=== PATIENT | male | born 1935 | race Caucasian/White ===

== ENCOUNTER 2020-07-20 07:22 | Day surgery (SDC) | payer MEDICARE, OTHER ==
[~2020-07-20 07:22] MED LIST: Lactated Ringers 1,000 ML IV SCH
[2020-07-20] MEDS ORDERED: fentaNYL 100 MCG/2 ML SDV ONE (08:21)
[2020-07-20] MEDS ORDERED: Propofol 200 MG/20 ML SDV ONE (08:21)
[2020-07-20 10:27] VITALS: BP 95/56; PULSE 78
--- NOTE | 2020-07-20 11:58 | OR ---
PREOPERATIVE DIAGNOSES: History of cecal colon cancer in 2016, status post resection. POSTOPERATIVE DIAGNOSES: 1. History of cecal colon cancer in 2016, status post resection. 2. Colon polyps. PROCEDURE PERFORMED: Total flexible colonoscopy with biopsies. ANESTHESIA: MAC anesthesia. COMPLICATIONS: None apparent. BLOOD LOSS: Minimal. FINDINGS: 1. Polyp at ileocolic anastomosis, 3 mm, cold snare. 2. Transverse colon polyp x2, 2 mm/3 mm, cold forceps and cold snare. 3. Descending colon polyps x3, 2 mm, cold forceps and cold snare, 1 polyp not retrieved. START TIME: 926. ILEOCOLIC ANASTOMOSIS: 936. STOP TIME: 1002. BOWEL PREP: [place] class 3. INDICATIONS FOR PROCEDURE: Mr. Santoyo is an 84-year-old male who has had a cecal cancer in 2016, which was resected in [place]. He is here for a surveillance colonoscopy. He denies any issues except for feeling a bit run-down after he had a diagnosis of COVID. DETAILS OF PROCEDURE: After informed consent was obtained, the patient was placed in left lateral decubitus position. MAC anesthesia was used by Anesthesia colleagues. The colonoscope was introduced into the rectum and advanced all the way to the ileocolic anastomosis. This was photographed. The colonoscope was then slowly withdrawn. No pathology identified except for as mentioned in the above finding section. Retroflexed views were obtained and was unremarkable. The colonoscope was then removed, and the patient was awoken from MAC anesthesia by Anesthesia colleagues without incident. PATHOLOGY: A) Colon, polyp near anastomosis Tubular adenoma. B) Colon, transverse, polyp Tubular adenoma. C) Colon, transverse, polyp Tubular adenoma. D) Colon, descending, polyps 2 Hyperplastic polyps. RECOMMENDATIONS: Recommend repeat colonoscopy in 3 years. RKM: 07/20/2020 10:09:44 MODL: 07/20/2020 11:05:47 /[id number] KELLIE
--- NOTE | 2020-07-30 08:01 | LETTER ---
07/27/2020 RE: OMI SEO : 1935 [address], [place] [address]. Dear Mr. Seo: I am writing to inform you of the pathology results of your recent colonoscopy. You had 3 tubular adenomas. A tubular adenoma is a polyp which does not contain cancer, but it can become cancer. This is why we removed them. You will need a repeat colonoscopy in 3 years. Warmest regards,
== END 2020-07-20 11:00 | disposition home or self-care (01) ==
LOC: VM.SDS 07:22
PROVIDERS: ATTEND Student in an Organized Health Care Education/Training Program
DX: Z12.11 Encounter for screening for malignant neoplasm of colon (principal); D12.3 Benign neoplasm of transverse colon; J44.9 Chronic obstructive pulmonary disease, unspecified; I10 Essential (primary) hypertension; I48.91 Unspecified atrial fibrillation; J45.909 Unspecified asthma, uncomplicated; Z85.038 Personal history of other malignant neoplasm of large intestine; Z90.49 Acquired absence of other specified parts of digestive tract; Z98.890 Other specified postprocedural states; Z79.899 Other long term (current) drug therapy; Z88.0 Allergy status to penicillin
CPT/HCPCS: 00811; 88305; J2704; J3010; J7120

== ENCOUNTER 2021-05-24 11:51 | Inpatient (IN) | payer MEDICARE, OTHER ==
--- NOTE | 2021-05-24 11:35 | EDM.PDOC ---
ED HPI GENERAL MEDICAL PROBLEM - General Chief Complaint: Trauma Stated Complaint: FALL, TRAUMA Time Seen by Provider: 05/24/21 11:51 Source of Information: Reports: Patient History Limitations: Reports: No Limitations - History of Present Illness INITIAL COMMENTS - FREE TEXT/NARRATIVE: Department by ambulance with complaints of fall on blood thinners. Patient was at the standing position and fell to the side hitting the side of his head on a cabinet. He denies falling to the ground. He denies losing consciousness, nausea, dizziness, lightheadedness, vision changes, balance disturbance, chest pain, or shortness of breath. Patient states that he lost his balance when he caught his footing his head had already hit the cabinet. Patient was going to be seen in the clinic today for upper respiratory concerns. That he states to been going on for the last 10 days. Onset: Sudden Duration: Other Location: Reports: Generalized Quality: Reports: Other Severity: Moderate Improves with: Reports: None Worsens with: Reports: None Context: Reports: Trauma Associated Symptoms: Reports: No Other Symptoms - Related Data Allergies Allergy/AdvReac Type Severity Reaction Status Date / Time Penicillins Allergy Hives Verified 07/20/20 08:07 Home Meds: Home Meds Albuterol [Proventil Neb Soln] 1 unit NEB QID PRN 03/19/15 [History] Ferrous Sulfate 325 mg PO DAILY 03/19/15 [History] Flunisolide [Nasalide Nasal [place]] 2 spray TARIQ BID 03/19/15 [History] Fluticasone/Salmeterol [Advair Diskus 500-50] 1 puff INH BID 03/19/15 [History] Gabapentin [Neurontin] 300 mg PO ASDIRECTED 03/19/15 [History] Montelukast [Singulair] 10 mg PO BEDTIME 03/19/15 [History] Pantoprazole [Protonix] 40 mg PO DAILY 03/19/15 [History] Tamsulosin [Tamsulosin 24 Hr] 0.4 mg PO BEDTIME 03/19/15 [History] Apixaban [Eliquis] 5 mg PO BID 03/18/16 [History] Acetaminophen [Tylenol] 325 mg PO DAILY PRN 04/21/19 [History] Albuterol Sulfate [Albuterol Sulfate Hfa] 1 puff IH Q4H PRN 04/21/19 [History] Budesonide/Formoterol [Symbicort 160-4.5 MCG] 2 puff INH BID 04/21/19 [History] Diclofenac Sodium [Voltaren 1%] 1 applic TOP BID 04/21/19 [History] Lisinopril/Hydrochlorothiazide [Lisinopril-HCTZ 10-12.5 MG] 2 tab PO DAILY 04/21/19 [History] Triamcinolone Acetonide [Kenalog 0.1% Crm] 1 dose TOP TID PRN 04/21/19 [History] Metoprolol Tartrate 100 mg PO BID 06/07/20 [History] Past Medical History HEENT History: Reports: Glaucoma, Other (See Below) Other HEENT History: Presbyesophagus; dysphagia; dyspepsia; nasal polyposis; chronic sinisitis Cardiovascular History: Reports: Afib, Hypertension Other Cardiovascular History: palpations; PVCs; NSVT Respiratory History: Reports: Asthma, COPD Gastrointestinal History: Reports: Colon Polyp, GERD, Helicobacter Pylori Other Gastrointestinal History: hx adenomatous polyps; hx h. pylori; bilateral inguinal hernia, dyspepsia, dysphagia Genitourinary History: Reports: BPH Other Genitourinary History: hypogonadism; BPH Musculoskeletal History: Reports: Arthritis, Back Pain, Chronic Other Musculoskeletal History: lumbago; rotator cuff; impingement syndrome of right shoulder; DJD Other Neuro History: hx meningioma IN BRAIN; carpal tunnel syndome; PLMD (poly limb movement disorder); lumbar radiculopathy Endocrine/Metabolic History: Reports: Other (See Below) Other Endocrine/Metabolic History: hypogonadism Hematologic History: Reports: Anemia, Iron Deficiency Oncologic (Cancer) History: Reports: Colon, Other (See Below) Other Oncologic History: meningioma - Past Surgical History Other HEENT Surgeries/Procedures: bilateral endoscopic sinus surgery with navigation; septoplasty, submucosal resection of turbinates; manometry esophageal Cardiovascular Surgical History: Reports: Cardiac Ablation Other Cardiovascular Surgeries/Procedures: cardioversion; catheterization Respiratory Surgical History: Reports: Other (See Below) Other Respiratory Surgeries/Procedures: bronchoscopy GI Surgical History: Reports: Appendectomy, Cholecystectomy, Colon, Colonoscopy, EGD, Hernia, Inguinal, Polypectomy, Other (See Below) Other GI Surgeries/Procedures: hiatal hernia repair x2, left and right inguinal; vadim fundoplication; bronchoscopy Other Neurological Surgeries/Procedures: meningioma of the speniod ridge removed; spinal stimulator Other Oncologic Surgeries/Procedures: Pt. scheduled for resection of colon 2015 ED ROS GENERAL - Review of Systems Review Of Systems: Comprehensive ROS is negative, except as noted in HPI. Constitutional: Reports: No Symptoms HEENT: Reports: No Symptoms Respiratory: Reports: Cough, Sputum Cardiovascular: Reports: No Symptoms Endocrine: Reports: No Symptoms GI/Abdominal: Reports: No Symptoms : Reports: No Symptoms Musculoskeletal: Reports: No Symptoms Skin: Reports: No Symptoms Neurological: Reports: No Symptoms Psychiatric: Reports: No Symptoms Hematologic/Lymphatic: Reports: No Symptoms Immunologic: Reports: No Symptoms ED EXAM, GENERAL - Physical Exam Exam: See Below Exam Limited By: No Limitations General Appearance: Alert, WD/WN, No Apparent Distress Nose: Normal Inspection, Normal Mucosa Head: Atraumatic, Normocephalic Neck: Normal Inspection, Supple, Full Range of Motion, Tender Lateral Respiratory/Chest: No Respiratory Distress, No Accessory Muscle Use, Chest Non- Tender, Decreased Breath Sounds Cardiovascular: Tachycardia GI/Abdominal: Normal Bowel Sounds, Soft, Non-Tender Back Exam: Normal Inspection, Full Range of Motion Extremities: Normal Inspection, Normal Range of Motion, Non-Tender, No Pedal Edema, Normal Capillary Refill Neurological: Alert, Oriented, Normal Cognition Psychiatric: Normal Affect, Normal Mood Skin Exam: Warm, Normal Color, No Rash, Other (right temporal hematoma with superficial cut. left elbow abrasion) Course - Orders/Labs/Meds Orders: Active Orders 24 hr Category Date Time Status Cervical Spine 1V [CR] Stat Exams 05/24/21 12:07 Ordered Chest 1V Frontal [CR] Stat Exams 05/24/21 11:34 Ordered COVID-19/FLU A+B [MOLEC] Stat Lab 05/24/21 12:01 Ordered CULTURE BLOOD [BC] Stat Lab 05/24/21 12:22 Ordered CULTURE BLOOD [BC] Stat Lab 05/24/21 12:22 Ordered Blood Culture x2 Reflex Set [OM.PC] Stat Oth 05/24/21 12:22 Ordered Labs: Laboratory Tests 05/24/21 05/24/21 05/24/21 Range/Units 12:10 12:10 12:10 WBC 21.0 H* (4.0-10.0) x10^3/uL RBC 4.79 (4.5-6.0) x10^6/uL Hgb 13.9 L (14.0-18.0) g/dL Hct 41.1 (40.0-52.0) % MCV 85.8 (78.0-93.0) fL MCH 29.0 (26.0-32.0) pg MCHC 33.8 (32.0-36.0) g/dL RDW Coeff of Gage 15.4 H (10.0-15.0) % Plt Count 200 (130-400) x10^3/uL Add Manual Diff Yes Neutrophils % (Manual) 88 H (50-80) % Band Neutrophils % 4 (0-6) % Lymphocytes % (Manual) 3 L (25-50) % Monocytes % (Manual) 5 (2-11) % Absolute Neutrophils 19.3 H (1.8-7.7) x10^3/uL Lymphocytes # (Manual) 0.6 L (1.0-4.8) x10^3/uL Monocytes # (Manual) 1.1 H (0.0-0.8) x10^3/uL Platelet Estimate Adequate Sodium 134 L (136-145) mmol/L Potassium 4.7 (3.5-5.1) mmol/L Chloride 98 (98-107) mmol/L Carbon Dioxide 23 (21-32) mmol/L Anion Gap 17.7 H (5-15) mmol/L BUN 29 H (7-18) mg/dL Creatinine 1.0 (0.70-1.30) mg/dL Est Cr Clr Drug Dosing TNP Estimated GFR (MDRD) > 60 Glucose 202 H (70-99) mg/dL Lactic Acid (0.4-2.0) mmol/L Calcium 9.2 (8.5-10.1) mg/dL Corrected Calcium 9.8 (8.5-10.1) mg/dL Total Bilirubin 1.4 H (0.2-1.0) mg/dL AST 44 H (15-37) U/L ALT 34 (16-63) U/L Alkaline Phosphatase 90 (46-116) U/L NT-Pro-B Natriuret Pep 5950 H (<=450) pg/mL Total Protein 7.3 (6.4-8.2) g/dL Albumin 3.2 L (3.4-5.0) g/dL Globulin 4.1 Albumin/Globulin Ratio 0.78 05/24/21 Range/Units 12:10 WBC (4.0-10.0) x10^3/uL RBC (4.5-6.0) x10^6/uL Hgb (14.0-18.0) g/dL Hct (40.0-52.0) % MCV (78.0-93.0) fL MCH (26.0-32.0) pg MCHC (32.0-36.0) g/dL RDW Coeff of Gage (10.0-15.0) % Plt Count (130-400) x10^3/uL Add Manual Diff Neutrophils % (Manual) (50-80) % Band Neutrophils % (0-6) % Lymphocytes % (Manual) (25-50) % Monocytes % (Manual) (2-11) % Absolute Neutrophils (1.8-7.7) x10^3/uL Lymphocytes # (Manual) (1.0-4.8) x10^3/uL Monocytes # (Manual) (0.0-0.8) x10^3/uL Platelet Estimate Sodium (136-145) mmol/L Potassium (3.5-5.1) mmol/L Chloride (98-107) mmol/L Carbon Dioxide (21-32) mmol/L Anion Gap (5-15) mmol/L BUN (7-18) mg/dL Creatinine (0.70-1.30) mg/dL Est Cr Clr Drug Dosing Estimated GFR (MDRD) Glucose (70-99) mg/dL Lactic Acid 2.4 H* (0.4-2.0) mmol/L Calcium (8.5-10.1) mg/dL Corrected Calcium (8.5-10.1) mg/dL Total Bilirubin (0.2-1.0) mg/dL AST (15-37) U/L ALT (16-63) U/L Alkaline Phosphatase (46-116) U/L NT-Pro-B Natriuret Pep (<=450) pg/mL Total Protein (6.4-8.2) g/dL Albumin (3.4-5.0) g/dL Globulin Albumin/Globulin Ratio Meds: Medications Discontinued Medications Generic Name Dose Route Start Last Admin Trade Name Freq PRN Reason Stop Dose Admin Ceftriaxone Sodium 1 gm 05/24/21 12:21 05/24/21 12:40 Ceftriaxone 1 Gm Vial IVPUSH 05/24/21 12:22 1 gm ONETIME ONE Administration Diltiazem HCl 20 mg 05/24/21 12:16 05/24/21 12:25 Diltiazem 50 Mg/10 Ml Sdv IVPUSH 05/24/21 12:17 20 mg ONETIME ONE Administration Departure - Departure Time of Disposition: 13:15 Disposition: Admitted As Inpatient 68 Condition: Fair Clinical Impression: Influenza A, Trauma Pneumonia Qualifiers: Pneumonia type: due to unspecified organism Laterality: unspecified laterality Lung location: unspecified part of lung Qualified Code(s): J18.9 - Pneumonia, unspecified organism Fluid overload Qualifiers: Hypervolemia type: unspecified Qualified Code(s): E87.70 - Fluid overload, unspecified A-fib Qualifiers: Atrial fibrillation type: unspecified Qualified Code(s): I48.91 - Unspecified atrial fibrillation - Discharge Information *PRESCRIPTION DRUG MONITORING PROGRAM REVIEWED*: Not Applicable *COPY OF PRESCRIPTION DRUG MONITORING REPORT IN PATIENT MEL: Not Applicable - My Orders Last 24 Hours: My Active Orders 05/24/21 11:34 Chest 1V Frontal [CR] Stat 05/24/21 12:01 COVID-19/FLU A+B [MOLEC] Stat 05/24/21 12:07 Cervical Spine 1V [CR] Stat 05/24/21 12:22 CULTURE BLOOD [BC] Stat CULTURE BLOOD [BC] Stat Blood Culture x2 Reflex Set [OM.PC] Stat - Assessment/Plan Last 24 Hours: My Active Orders 05/24/21 11:34 Chest 1V Frontal [CR] Stat 05/24/21 12:01 COVID-19/FLU A+B [MOLEC] Stat 05/24/21 12:07 Cervical Spine 1V [CR] Stat 05/24/21 12:22 CULTURE BLOOD [BC] Stat CULTURE BLOOD [BC] Stat Blood Culture x2 Reflex Set [OM.PC] Stat Assessment:: 1.Trauma- fall while on blood thinner 2. elevated lactic acid 3. Pneumonia 4. Influenza A 5. Fluid overload 6. accelerated A. fib Plan: 1. Labs completed in the ER. Results reviewed with the patient 2. CT scan completed in the ER. Results reviewed with the patient 3. IV initiated in the emergency department 4. EKG completed. Rapid A.fib no ectopy or st elevation noted 5. Pain medication offered discomfort-denies needing any 6. Covid-Negative 7. Influenza A positive 8. Cardizem 20mg IV given due to accelerated a. fib. Heart rate from 160-170s to 120-130s. Patient tolerated well. 9. Blood cultures completed 10. Rocephin IV given 11. Consultation completed with- Dr. Green who will assume care and admit to acute care 12. Patient and nursing staff was updated regarding the plan of care 13. Patient and family are agreeable to the above plan of care 14. All questions and concerns were addressed with the patient and family prior to discharge
[2021-05-24] MEDS ORDERED: Diltiazem 50 MG/10 ML SDV IVPUSH ONE (12:16)
[2021-05-24] MEDS ORDERED: cefTRIAXone 1 GM Vial IVPUSH ONE (12:21)
--- NOTE | 2021-05-24 12:26 | CT ---
[id number] CT/CT Head WO IV EXAM: CT Head WO IV CLINICAL DATA: TRAUMA ANTICOAGULATED PATIENT COMPARISON: No previous similar exam is available for comparison. FINDINGS: Surgical changes are seen There is no mass or mass effect. There is no hemorrhage or hydrocephalus. There are no extra-axial fluid collections. There are no sites of abnormal attenuation. IMPRESSION: NO PLAIN CT EVIDENCE OF ACUTE INTRACRANIAL PROCESS. Jay Davila MD 05/24/21 [id number] Thank you for allowing us to participate in the care of your patient.
[2021-05-24 12:40] LABS: CHLORIDE,CL 98 mmol/L (98-107); SODIUM,NA 134 mmol/L (136-145)
[2021-05-24 12:43] LABS: ANION GAP 17.7 mmol/L (5-15)
[2021-05-24 12:53] LABS: CORONAVIRUS COVID-19 NAA NEGATIVE (NEGATIVE)
--- NOTE | 2021-05-24 12:55 | CR ---
[id number] RAD/RAD Cervical Spine 1V Exam: RAD Cervical Spine 1V Indication:Pain. Comparison: No prior imaging for comparison. Discussion/Impression: Single lateral view of the cervical spine. Cervical spondylosis. No radiographically evident fracture or spondylolisthesis. Soft tissues are unremarkable. Nick Feliz MD 05/24/21 [id number] Thank you for allowing us to participate in the care of your patient.
[2021-05-24] MEDS ORDERED: Metoprolol Succinate 50 MG Tab.ER PO STA (13:43)
--- NOTE | 2021-05-24 14:10 | PCM.HP.2 ---
H&P History of Present Illness - General Date of Service: 05/24/21 Admit Problem/Dx: Admission Diagnosis/Problem Admission Diagnosis/Problem Pneumonia due to influenza Source of Information: Patient History Limitations: Reports: No Limitations - History of Present Illness Initial Comments - Free Text/Narative: Mr. Santoyo is an 85 yo male with PMH of a-fib, HTN, asthma, colon cancer, meningioma, iron deficiency anemia, GERD, BPH, and lumbar spine DDD who presented to the ER via EMS following a fall at home this morning. He was walking in his home when he tripped on a rug and fell. He hit his head on a cabinet and had significant bleeding from this in the setting of being on eliquis. He did not lose consciousness. His called 911 and they brought him to the ER. He denies any headache. The bleeding has stopped. No w/n/t or confusion. He also noted 10-14 days of generalized malaise associated with cough. No chest pain or fever. He has chronic shortness of breath on exertion that he attributes to his asthma and denies that this has been any worse recently. He denies any palpitations today. He has been doing cares at home but symptoms have not really been improving. He has been eating ok and denies any vomiting or diarrhea. He denies any other injuries from his fall besides the head. No neck pain or extremity pain. - Related Data Allergies/Adverse Reactions: Allergies Allergy/AdvReac Type Severity Reaction Status Date / Time Penicillins Allergy Hives Verified 07/20/20 08:07 Home Medications: Home Meds Albuterol [Proventil Neb Soln] 1 unit NEB QID PRN 03/19/15 [History] Flunisolide [Nasalide Nasal [place]] 2 spray TARIQ BID 03/19/15 [History] Fluticasone/Salmeterol [Advair Diskus 500-50] 1 puff INH BID 03/19/15 [History] Gabapentin [Neurontin] 300 mg PO ASDIRECTED 03/19/15 [History] Montelukast [Singulair] 10 mg PO BEDTIME 03/19/15 [History] Tamsulosin [Tamsulosin 24 Hr] 0.4 mg PO BEDTIME 03/19/15 [History] Apixaban [Eliquis] 5 mg PO BID 11/01/16 [History] Acetaminophen [Tylenol] 325 mg PO DAILY PRN 04/21/19 [History] Albuterol Sulfate [Albuterol Sulfate Hfa] 1 puff IH Q4H PRN 04/21/19 [History] Budesonide/Formoterol [Symbicort 160-4.5 MCG] 2 puff INH BID 04/21/19 [History] Diclofenac Sodium [Voltaren 1%] 1 applic TOP BID 04/21/19 [History] Lisinopril/Hydrochlorothiazide [Lisinopril-HCTZ 10-12.5 MG] 2 tab PO DAILY 04/21/19 [History] Triamcinolone Acetonide [Kenalog 0.1% Crm] 1 dose TOP TID PRN 04/21/19 [History] Metoprolol Succinate [Toprol XL 50mg] 50 mg PO BID 05/24/21 [History] Past Medical History HEENT History: Reports: Glaucoma, Other (See Below) Other HEENT History: nasal polyposis; chronic sinisitis Cardiovascular History: Reports: Afib, Hypertension Other Cardiovascular History: palpations; PVCs; NSVT Respiratory History: Reports: Asthma Gastrointestinal History: Reports: Colon Polyp, GERD, Helicobacter Pylori Other Gastrointestinal History: hx adenomatous polyps; hx h. pylori; bilateral inguinal hernia, dyspepsia, dysphagia Genitourinary History: Reports: BPH Other Genitourinary History: hypogonadism; BPH Musculoskeletal History: Reports: Arthritis, Back Pain, Chronic Other Musculoskeletal History: lumbago; rotator cuff; impingement syndrome of r ight shoulder; DJD Other Neuro History: hx meningioma IN BRAIN; carpal tunnel syndome; PLMD (poly limb movement disorder); lumbar radiculopathy Psychiatric History: Reports: None Endocrine/Metabolic History: Reports: Other (See Below) Other Endocrine/Metabolic History: hypogonadism Hematologic History: Reports: Anemia, Iron Deficiency Immunologic History: Reports: None Oncologic (Cancer) History: Reports: Colon, Other (See Below) Other Oncologic History: meningioma Dermatologic History: Reports: None - Past Surgical History HEENT Surgical History: Reports: Cataract Surgery Other HEENT Surgeries/Procedures: bilateral endoscopic sinus surgery with navigation; septoplasty, submucosal resection of turbinates; manometry esophageal Cardiovascular Surgical History: Reports: Cardiac Ablation Other Cardiovascular Surgeries/Procedures: cardioversion; catheterization Respiratory Surgical History: Reports: Other (See Below) Other Respiratory Surgeries/Procedures: bronchoscopy GI Surgical History: Reports: Appendectomy, Cholecystectomy, Colon, Colonoscopy, EGD, Hernia, Inguinal, Polypectomy, Other (See Below) Other GI Surgeries/Procedures: hiatal hernia repair x2, left and right inguinal; vadim fundoplication; bronchoscopy Other Neurological Surgeries/Procedures: meningioma of the speniod ridge removed; spinal stimulator Other Oncologic Surgeries/Procedures: Pt. scheduled for resection of colon 2015 Social & Family History - Family History Family Medical History: Unobtainable (patient is adopted) - Tobacco Use Tobacco Use Status *Q: Never Tobacco User - Alcohol Use Alcohol Use History: No Alcohol Use in Last Twelve Months: No - Recreational Drug Use Recreational Drug Use: No - Living Situation & Occupation Living situation: Reports: , with Spouse Occupation: Retired (david) H&P Review of Systems - Review of Systems: Review Of Systems: See Below General: Reports: Malaise. Denies: Fever, Chills HEENT: Reports: No Symptoms Pulmonary: Reports: Shortness of Breath, Cough Cardiovascular: Reports: No Symptoms Gastrointestinal: Reports: No Symptoms Genitourinary: Reports: No Symptoms Musculoskeletal: Reports: No Symptoms Skin: Reports: No Symptoms Psychiatric: Reports: No Symptoms Neurological: Reports: No Symptoms Exam - Exam Exam: See Below - Exam General: Alert, Oriented, Cooperative HEENT: Conjunctiva Clear, Mucosa Moist & [place], Normal Nasal Septum, Posterior Pharynx Clear, Pupils Equal, Pupils Reactive, TMs Clear, Other (contusion left forehead with overlying laceration that is well approximated without sutures/joie and is no longer bleeding) Neck: Supple, Trachea Midline, Full Range of Motion. No: Lymphadenopathy, Th yromegaly Lungs: Clear to Auscultation, Normal Respiratory Effort Cardiovascular: Normal S1, Normal S2, Irregular Rhythm, Tachycardia GI/Abdominal Exam: Normal Bowel Sounds, Soft, Non-Tender, No Organomegaly, No Distention, No Mass Extremities: Normal Inspection, Normal Range of Motion, Non-Tender, No Pedal Edema, Normal Capillary Refill Peripheral Pulses: 2+: Radial (L), Radial (R) Skin: Warm, Dry Neurological: Strength Equal Bilateral, Sensation Intact Neuro Extensive - Mental Status: Alert, Oriented x3, Normal Cognition Neuro Extensive - Motor, Sensory, Reflexes: CN II-XII Intact - Patient Data Lab Results Last 24 hrs: Laboratory Results - last 24 hr 05/24/21 05/24/21 05/24/21 Range/Units 12:10 12:10 12:10 WBC 21.0 H* (4.0-10.0) x10^3/uL RBC 4.79 (4.5-6.0) x10^6/uL Hgb 13.9 L (14.0-18.0) g/dL Hct 41.1 (40.0-52.0) % MCV 85.8 (78.0-93.0) fL MCH 29.0 (26.0-32.0) pg MCHC 33.8 (32.0-36.0) g/dL RDW Coeff of Gage 15.4 H (10.0-15.0) % Plt Count 200 (130-400) x10^3/uL Add Manual Diff Yes Neutrophils % (Manual) 88 H (50-80) % Band Neutrophils % 4 (0-6) % Lymphocytes % (Manual) 3 L (25-50) % Monocytes % (Manual) 5 (2-11) % Absolute Neutrophils 19.3 H (1.8-7.7) x10^3/uL Lymphocytes # (Manual) 0.6 L (1.0-4.8) x10^3/uL Monocytes # (Manual) 1.1 H (0.0-0.8) x10^3/uL Platelet Estimate Adequate Sodium 134 L (136-145) mmol/L Potassium 4.7 (3.5-5.1) mmol/L Chloride 98 (98-107) mmol/L Carbon Dioxide 23 (21-32) mmol/L Anion Gap 17.7 H (5-15) mmol/L BUN 29 H (7-18) mg/dL Creatinine 1.0 (0.70-1.30) mg/dL Est Cr Clr Drug Dosing TNP Estimated GFR (MDRD) > 60 Glucose 202 H (70-99) mg/dL Lactic Acid (0.4-2.0) mmol/L Calcium 9.2 (8.5-10.1) mg/dL Corrected Calcium 9.8 (8.5-10.1) mg/dL Total Bilirubin 1.4 H (0.2-1.0) mg/dL AST 44 H (15-37) U/L ALT 34 (16-63) U/L Alkaline Phosphatase 90 (46-116) U/L NT-Pro-B Natriuret Pep 5950 H (<=450) pg/mL Total Protein 7.3 (6.4-8.2) g/dL Albumin 3.2 L (3.4-5.0) g/dL Globulin 4.1 Albumin/Globulin Ratio 0.78 Influenza Type A RNA (NEGATIVE) Influenza Type B RNA (NEGATIVE) SARS-CoV-2 RNA (JEANNETTE) (NEGATIVE) 05/24/21 05/24/21 Range/Units 12:10 12:11 WBC (4.0-10.0) x10^3/uL RBC (4.5-6.0) x10^6/uL Hgb (14.0-18.0) g/dL Hct (40.0-52.0) % MCV (78.0-93.0) fL MCH (26.0-32.0) pg MCHC (32.0-36.0) g/dL RDW Coeff of Gage (10.0-15.0) % Plt Count (130-400) x10^3/uL Add Manual Diff Neutrophils % (Manual) (50-80) % Band Neutrophils % (0-6) % Lymphocytes % (Manual) (25-50) % Monocytes % (Manual) (2-11) % Absolute Neutrophils (1.8-7.7) x10^3/uL Lymphocytes # (Manual) (1.0-4.8) x10^3/uL Monocytes # (Manual) (0.0-0.8) x10^3/uL Platelet Estimate Sodium (136-145) mmol/L Potassium (3.5-5.1) mmol/L Chloride (98-107) mmol/L Carbon Dioxide (21-32) mmol/L Anion Gap (5-15) mmol/L BUN (7-18) mg/dL Creatinine (0.70-1.30) mg/dL Est Cr Clr Drug Dosing Estimated GFR (MDRD) Glucose (70-99) mg/dL Lactic Acid 2.4 H* (0.4-2.0) mmol/L Calcium (8.5-10.1) mg/dL Corrected Calcium (8.5-10.1) mg/dL Total Bilirubin (0.2-1.0) mg/dL AST (15-37) U/L ALT (16-63) U/L Alkaline Phosphatase (46-116) U/L NT-Pro-B Natriuret Pep (<=450) pg/mL Total Protein (6.4-8.2) g/dL Albumin (3.4-5.0) g/dL Globulin Albumin/Globulin Ratio Influenza Type A RNA Positive H (NEGATIVE) Influenza Type B RNA Negative (NEGATIVE) SARS-CoV-2 RNA (JEANNETTE) Negative (NEGATIVE) Result Diagrams: 05/24/21 12:10 05/24/21 12:10 *Q Meaningful Use (ADM) - VTE *Q VTE Anticoagulation Contraindications: Med/TX Not Indicated/Need - Problem List (1) Sepsis SNOMED Code(s): 13419357 ICD Code: A41.9 - SEPSIS, UNSPECIFIED ORGANISM Status: Acute Current Visit: Yes Qualifiers: Sepsis type: sepsis due to unspecified organism Sepsis acute organ dysfunction status: unspecified Qualified Code(s): A41.9 - Sepsis, unspecified organism (2) Community acquired pneumonia SNOMED Code(s): 133503268 ICD Code: J18.9 - PNEUMONIA, UNSPECIFIED ORGANISM Status: Acute Current Visit: Yes Qualifiers: Laterality: right Lung location: lower lobe of lung Qualified Code(s): J 18.9 - Pneumonia, unspecified organism (3) Influenza A SNOMED Code(s): 823407061 ICD Code: J10.1 - FLU DUE TO OTH IDENT INFLUENZA VIRUS W OTH RESP MANIFEST Status: Acute Current Visit: Yes (4) Asthma SNOMED Code(s): 624463720 ICD Code: J45.909 - UNSPECIFIED ASTHMA, UNCOMPLICATED Status: Chronic Current Visit: Yes Qualifiers: Asthma severity: moderate Asthma persistence: persistent Asthma complication type: with acute exacerbation Qualified Code(s): J45.41 - Moderate persistent asthma with (acute) exacerbation (5) A-fib SNOMED Code(s): 78325509 ICD Code: I48.91 - UNSPECIFIED ATRIAL FIBRILLATION Status: Chronic Current Visit: Yes Qualifiers: Atrial fibrillation type: unspecified Qualified Code(s): I48.91 - Unspecified atrial fibrillation (6) Trauma SNOMED Code(s): 155421874 ICD Code: T14.90XA - INJURY, UNSPECIFIED, INITIAL ENCOUNTER Status: Acute Current Visit: Yes (7) DDD (degenerative disc disease), lumbar SNOMED Code(s): 67152047 ICD Code: M51.36 - OTHER INTERVERTEBRAL DISC DEGENERATION, LUMBAR REGION Status: Chronic Current Visit: Yes (8) GERD (gastroesophageal reflux disease) SNOMED Code(s): 797146208 ICD Code: K21.9 - GASTRO-ESOPHAGEAL REFLUX DISEASE WITHOUT ESOPHAGITIS Status: Acute Current Visit: No Qualifiers: Esophagitis presence: without esophagitis Qualified Code(s): K21.9 - Gastro-esophageal reflux disease without esophagitis (9) HTN (hypertension) SNOMED Code(s): 28989193 ICD Code: I10 - ESSENTIAL (PRIMARY) HYPERTENSION Status: Chronic Current Visit: No Qualifiers: Hypertension type: primary hypertension Qualified Code(s): I10 - Essential (primary) hypertension (10) PLMD (periodic limb movement disorder) SNOMED Code(s): 970768126 ICD Code: G47.61 - PERIODIC LIMB MOVEMENT DISORDER Status: Chronic Current Visit: No Problem List Initiated/Reviewed/Updated: Yes Orders Last 24hrs: Active Orders 24 hr Category Date Time Status Admission Diagnosis [ADT] Stat ADT 05/24/21 13:04 Ordered Admission Status [Patient Status] [ADT] Routine ADT 05/24/21 13:05 Active Notify Provider Vital Signs [RC] ASDIRECTED Care 05/24/21 13:51 Ordered Oxygen Therapy [RC] PRN Care 05/24/21 13:50 Ordered Up With Assistance [RC] ASDIRECTED Care 05/24/21 13:50 Ordered VTE/DVT Education [RC] PER UNIT ROUTINE Care 05/24/21 13:50 Ordered Vital Signs [RC] Q4H Care 05/24/21 13:50 Ordered Consult to Occupational Therapy [OT Evaluation and Cons 05/24/21 13:53 Ordered Treatment] [CONS] Routine PT Evaluation and Treatment [CONS] Routine Cons 05/24/21 13:53 Ordered Regular Diet [DIET] Diet 05/24/21 Dinner Ordered Chest 1V Frontal [CR] Stat Exams 05/24/21 11:34 Ordered CULTURE BLOOD [BC] Stat Lab 05/24/21 12:35 Received CULTURE BLOOD [BC] Stat Lab 05/24/21 12:38 Received LACTIC ACID [CHEM] Routine Lab 05/24/21 13:57 Ordered Anticoagulation Contraindications VTE [AST] Per Unit Oth 05/24/21 13:50 Ordered Routine Blood Culture x2 Reflex Set [OM.PC] Stat Oth 05/24/21 12:22 Ordered Resuscitation Status Routine Resus Stat 05/24/21 13:50 Ordered Assessment/Plan Comment:: 85 yo male admitted with sepsis secondary to CAP after presenting to the ER for evaluation following a mechanical fall at home. #1 Sepsis, secondary to #2 #2 CAP #3 Influenza A - Meets sepsis criteria with tachycardia and leukocytosis. - No other s/s of infection besides the respiratory symptoms. - Influenza A is positive but he has been ill for 10-14 days; therefore, there is no role for tamiflu. - Given increased risk for MRSA with pneumonia post-influenza, will do vancomycin in addition to the usual ceftriaxone. Low threshold to broaden coverage to zosyn. - Lactic acid elevated initially but he also has an elevated BNP. Therefore, no fluids given at this time in light of VSS aside from a-fib with RVR. Will repeat lactic acid this pm and again in the am. - Can bolus IVF as need be. - Not requiring oxygen but will supplement as indicated. - Blood cultures pending. #4 Asthma - Given a-fib with RVR and the fact he is not currently wheezing, will hold off on prednisone and nebs. - Can add prednisone and nebs as indicated based on clinical status. #5 A-fib with RVR - Patient is asymptomatic and BP's are stable. - Likely secondary to above. - Therefore, will attempt to get rates down with PO metoprolol. - If not able, will consider repeat IV dosing of diltiazem. - Continue eliquis in the absence of serious injuries from his fall. #6 Trauma - Patient without serious injuries from his fall. - Does have a head contusion but no intracranial bleed. Neck x-ray negative; C- spine cleared clinically. - Will continue to monitor for any new areas of pain over the next day or 2. - Tylenol for pain. #7 DDD #8 GERD #9 HTN #10 PLMD - Continue home medications. Patient will be admitted to acute - anticipate he will stay through the weekend. PT and OT will need to evaluate him prior to d/c to make sure he does not need swing bed prior to returning home. Code status is DNR/DNI - discussed on admission. No other VTE prophylaxis besides the eliquis he is already on. - Mortality Measure Prognosis:: Good
[2021-05-24] MEDS ORDERED: Metoprolol Tartrate 25 MG Tab PO STA ×2 (14:58→16:00)
[2021-05-24] MEDS ORDERED: Acetaminophen 325 MG Tab PO PRN (15:54)
[2021-05-24] MEDS: VANCOmycin 1.25 GM/250 ML 250 ML IV SCH (16:21)
[2021-05-24] MEDS: Apixaban 2.5 MG Tab PO SCH (19:50)
[2021-05-24] MEDS: Montelukast 10 MG Tab PO SCH (19:51)
[2021-05-24] MEDS: Tamsulosin 0.4 MG Cap.ER PO SCH (19:51)
[2021-05-24] MEDS: Gabapentin 300 MG Cap PO SCH (19:51)
[2021-05-24] MEDS ORDERED: Metoprolol Tartrate 5 MG/5 ML SDV IVPUSH ONE (21:24)
[2021-05-24] MEDS ORDERED: Sodium Chloride 0.9% 10 ML Syringe IV PRN (22:59)
[2021-05-25] MEDS: Metoprolol Succinate 50 MG Tab.ER PO SCH ×3 (06:35→21:32)
[2021-05-25] MEDS ORDERED: Hydrochlorothiazide 25 MG Tab PO SCH (08:00)
[2021-05-25 08:02] LABS: CHLORIDE,CL 101 mmol/L (98-107); SODIUM,NA 136 mmol/L (136-145)
[2021-05-25] MEDS: cefTRIAXone 1 GM Vial IVPUSH SCH (08:17)
[2021-05-25] MEDS: Apixaban 2.5 MG Tab PO SCH ×2 (08:20→20:21)
[2021-05-25] MEDS: Lisinopril 20 MG Tab PO SCH (08:22)
[2021-05-25] MEDS: Gabapentin 300 MG Cap PO SCH ×2 (08:23→20:21)
[2021-05-25] MEDS ORDERED: Acetaminophen 325 MG Tab PO PRN (09:33)
[2021-05-25] MEDS ORDERED: Albuterol 0.083% 2.5 MG/3 ML Neb Soln NEB PRN (10:22)
[2021-05-25] MEDS ORDERED: Albuterol 0.083% 2.5 MG/3 ML Neb Soln INH PRN (10:28)
[2021-05-25] MEDS ORDERED: Albuterol HFA 18 Gm Inhaler INH PRN (10:29)
[2021-05-25] MEDS: Formoterol/Mometasone 200-5 MCG 13 GM Inhaler INH SCH ×2 (10:52→20:25)
--- NOTE | 2021-05-25 11:41 | PN ---
Progress Note for ANGELY SEO Date: 05/25/2021 Room #: [id number] SUBJECTIVE: This is hospital day #2 on an 85-year-old admitted with weakness and a fall yesterday, found to have influenza A, but not started on Tamiflu as he had been sick for 10 to 14 days and mainly had generalized weakness with cough. He was started on IV Rocephin and IV vancomycin and his cough is much better today. His white count is normal. He is not having any fever. His only issue is on telemetry his heart rates are consistently into the 120s to 150s, but yesterday on admission, they were much higher, even above 160, and he is feeling fine. No chest pain. He does not notice the palpitations. He is not short of breath, he is not even on oxygen, and he reports about 10 years ago, he had an ablation and he has been on Eliquis. He normally takes 50 mg of metoprolol at home. He got some IV diltiazem in the ER. He has gotten an IV Lopressor dose and has been on now 50 mg of Toprol here yesterday at noon and a dose given early this morning. He ate well for his bedtime snack. OBJECTIVE: VITAL SIGNS: His temperature is 97.8, his pulse is 156, blood pressure 125/72, respiratory rate 18, and O2 of 94% on room air. GENERAL: He is in no acute distress. HEART: Regularly irregular. Tachycardia and murmur. LUNGS: Sounds are clear to auscultation with some rare expiratory wheezing. ABDOMEN: Has positive bowel sounds. Soft, nondistended, nontender. EXTREMITIES: Warm and dry. No edema. MENTAL STATUS: He is alert, he is orientated x3. LAB WORK: Again, did show white count down to 7.7, hemoglobin 12.5, platelets 170. Sodium 136, potassium 4, chloride 101, bicarb 26, BUN 26, creatinine 0.9, glucose 132, lactic 1.6, calcium 8.7. CRP 14.4. TSH 1.6. ASSESSMENT AND PLAN: 1. Influenza A with secondary bacterial pneumonia, day #2 of Rocephin and vancomycin, improving. We will continue with the same antibiotics. 2. Sepsis secondary to community-acquired pneumonia after influenza A. 3. Asthma with exacerbation due to pneumonia. I feel that he does not need any IV steroids or even p.o., but he would benefit from having his inhalers and nebulizers. I did encourage him not to overutilize nebulizers as they can make his heart rate faster. 4. Fall, trauma with head injury. Head CT negative. 5. Atrial fibrillation with rapid ventricular response. We will continue telemetry. He is on Toprol now 50 b.i.d. We will give him p.r.n. doses of Lopressor if needed. His blood pressure has been excellent. We will continue Eliquis. 6. Gastroesophageal reflux disease. 7. Essential hypertension. I am going to hold his hydrochlorothiazide. He is not having any fluid overload. 8. Restless legs syndrome. PLAN: The patient will continue on acute cares. We will restart his inhalers and nebulizers. We will continue IV antibiotics. We will continue working on heart rates and monitoring telemetry. I anticipate that the patient maybe improved enough for discharge as soon as tomorrow or Thursday. Code level 3, on Eliquis for DVT prophylaxis. MKA: 05/25/2021 10:28:18 MODL: 05/25/2021 11:35:03 /[id number]
[2021-05-25] MEDS: VANCOmycin 1.25 GM/250 ML 250 ML IV SCH (15:43)
[2021-05-25] MEDS ORDERED: Metoprolol Tartrate 5 MG/5 ML SDV IVPUSH STA (17:57)
[2021-05-25] MEDS: Tamsulosin 0.4 MG Cap.ER PO SCH (20:22)
[2021-05-25] MEDS: Montelukast 10 MG Tab PO SCH (20:22)
[2021-05-26] MEDS ORDERED: Albuterol 2.5 MG/0.5 ML UD Neb NEB PRN (03:06)
[2021-05-26 08:17] LABS: CHLORIDE,CL 101 mmol/L (98-107); SODIUM,NA 136 mmol/L (136-145)
[2021-05-26] MEDS: Apixaban 2.5 MG Tab PO SCH ×2 (08:21→19:52)
[2021-05-26] MEDS: cefTRIAXone 1 GM Vial IVPUSH SCH (08:21)
[2021-05-26] MEDS: Gabapentin 300 MG Cap PO SCH ×2 (08:21→19:51)
[2021-05-26] MEDS: Lisinopril 20 MG Tab PO SCH (08:21)
[2021-05-26] MEDS: Metoprolol Succinate 50 MG Tab.ER PO SCH ×3 (08:21→19:51)
[2021-05-26] MEDS: Formoterol/Mometasone 200-5 MCG 13 GM Inhaler INH SCH ×2 (08:22→19:59)
[2021-05-26 08:24] LABS: ANION GAP 13.7 mmol/L (5-15)
--- NOTE | 2021-05-26 09:21 | CR ---
[id number] RAD/RAD Chest PA or AP 1V EXAM: RAD Chest PA or AP 1V INDICATION: Fall. COMPARISON: None. DISCUSSION/IMPRESSION: Scattered patchy areas of parenchymal opacification in both lungs most prominent in the right mid and lower lung. Correlate for signs of infection, as asymmetric and patchy distribution suggests underlying pneumonia, including COVID pneumonia. No visible fracture. No pneumothorax or pleural effusion. Mild cardiomegaly and central vascular congestion. Spinal similar device in place. Nick Feliz MD 05/26/21 4922 Thank you for allowing us to participate in the care of your patient.
[2021-05-26] MEDS ORDERED: methylPREDNISolone Sodium Succinate 40 MG/1 ML SDV IVPUSH ONE (11:06)
[2021-05-26] MEDS ORDERED: Albuterol 0.083% 2.5 MG/3 ML Neb Soln INH PRN (11:14)
[2021-05-26] MEDS: Amiodarone 200 MG Tab PO SCH ×2 (11:35→19:51)
--- NOTE | 2021-05-26 12:13 | PN ---
Progress Note for ANGELY SEO Date: 05/26/2021 Room #: [id number] SUBJECTIVE: This is hospital day #3 on an 85-year-old admitted with a post- influenza pneumonia and AFib with RVR. His heart rate continued to be uncontrolled in the 150s routinely going up into the 160s, 170s. He is still not having any chest pain. He does not feel any shortness of breath. He is not even on oxygen, but he is starting a cough a little bit more today. He did ask for an albuterol and did get one during the night. Xopenex is not available here. He does have some underlying COPD. His home inhalers were restarted yesterday. The patient has been afebrile. He is answering questions appropriately. He says he is getting up in his room without any significant assistance. He ate 100% of his breakfast today. OBJECTIVE: Vital Signs: His temperature today was 97.2, he has not had any temperatures in the last 24 hours. His heart rate 137, blood pressure 129/72, respiratory rate 18, and O2 of 95% on room air. General: He is in no acute distress. Heart: Regularly irregular with tachycardia. Lungs: Sounds are clear to auscultation over the left, but does have some decreased lung sounds and crackles on the right with some expiratory wheezing throughout. Abdomen: Positive bowel sounds. Soft, nondistended, nontender. Extremities: Warm and dry. No edema. Mental Status: Alert and orientated x3. LABORATORY DATA: Lab work does show white count is 5.3, hemoglobin 12.3, platelets 187. Sodium 136, potassium 3.7, chloride 101, bicarb 25, BUN 22, creatinine 0.8, glucose 140, calcium 8.5. ALT and AST all normal. Bilirubin normal. Albumin 2.6. Thyroid 1.6 yesterday. ASSESSMENT AND PLAN: 1. Sepsis secondary to pneumonia after influenza A. 2. Influenza A. he has been sick 2 weeks ago, so no Tamiflu started. 3. Community-acquired pneumonia after influenza. He is on vancomycin and Rocephin day #3. Sputum cultures were not supportive of a respiratory specimen. Blood cultures negative 4. Asthma exacerbation due to underlying pneumonia. I am going to start him on some 40 mg of Solu-Medrol one time today, nebulizers are available. 5. Atrial fibrillation with rapid ventricular response. This continues to be his major health concern keeping him in the hospital. Discussed with [facility] today. They agreed Toprol should be increased up to 100 twice daily and amiodarone load I will start 400 mg twice daily and then he can go home on 200 daily. He will continue Eliquis. We will continue telemetry. 6. Fall with recent head trauma. CT negative. He is mentating normally. 7. Gastroesophageal reflux disease. 8. Essential hypertension. Hydrochlorothiazide is on hold. He has not had any fluid overload. He is on lisinopril. 9. Restless legs syndrome. PLAN: The patient will continue acute cares. We will repeat a chest x-ray today. We will give him some Solu-Medrol. We will continue IV antibiotics to cover for MRSA. When he is stable for discharge, potentially we can use Bactrim and we will continue as needed nebulizers and his home inhalers. For DVT prophylaxis, he is on Eliquis. He is a code level 3. Anticipate, as soon as his heart rates are controlled, he will be able to be discharged. I or will assume care tomorrow. I am dictating this note as NMR provider. MKA: 05/26/2021 11:28:01 MODL: 05/26/2021 12:05:05 /[id number] KELLIE
[2021-05-26] MEDS: VANCOmycin 1.25 GM/250 ML 250 ML IV SCH (16:20)
[2021-05-26] MEDS: Montelukast 10 MG Tab PO SCH (19:52)
[2021-05-26] MEDS: Tamsulosin 0.4 MG Cap.ER PO SCH (19:52)
[2021-05-27] MEDS: Lisinopril 20 MG Tab PO SCH (08:22)
[2021-05-27] MEDS: Metoprolol Succinate 50 MG Tab.ER PO SCH ×2 (08:22→21:23)
[2021-05-27] MEDS: Gabapentin 300 MG Cap PO SCH ×2 (08:22→21:22)
[2021-05-27] MEDS: Amiodarone 200 MG Tab PO SCH ×2 (08:22→21:21)
[2021-05-27] MEDS: Formoterol/Mometasone 200-5 MCG 13 GM Inhaler INH SCH ×2 (08:24→21:15)
[2021-05-27] MEDS: cefTRIAXone 1 GM Vial IVPUSH SCH (08:25)
[2021-05-27] MEDS ORDERED: Digoxin 500 MCG/2 ML Amp IVPUSH ONE (08:32)
--- NOTE | 2021-05-27 09:35 | CR ---
[id number] RAD/RAD Chest PA And Lateral EXAM: RAD Chest PA And Lateral INDICATION: Cough. COMPARISON: May 24, 2021. DISCUSSION: Cardiomediastinal silhouette is normal in size and contour. No infiltrate, effusion, pneumothorax, or edema. Pulmonary hyperinflation. Spinal stimulator in place. IMPRESSION: No acute cardiopulmonary abnormality. Jesse Kruse DO 05/27/21 0934 Thank you for allowing us to participate in the care of your patient.
[2021-05-27] MEDS: Apixaban 2.5 MG Tab PO SCH ×2 (09:56→21:20)
[2021-05-27] MEDS: predniSONE 20 MG Tab PO SCH (09:58)
[2021-05-27] MEDS ORDERED: VANCOmycin 2 GM/400 ML 400 ML IV ONE (16:45)
[2021-05-27] MEDS: VANCOmycin 1.25 GM/250 ML 250 ML IV SCH (17:40)
[2021-05-27] MEDS: Tamsulosin 0.4 MG Cap.ER PO SCH (21:22)
[2021-05-27] MEDS: Montelukast 10 MG Tab PO SCH (21:22)
[2021-05-28] MEDS ORDERED: VANCOmycin 1.5 GM/300 ML 300 ML IV SCH (06:00)
--- NOTE | 2021-05-28 07:30 | PN ---
Progress Note for ANGELY SEO Date: 05/27/2021 Room #: VM.204 SUBJECTIVE: This is hospital day #4 on an 85-year-old admitted with post- influenza pneumonia. He has been afebrile. He started having some more wheezing yesterday and was using a neb, but now he has not used one since yesterday. He is still coughing, but he does not feel short of breath. He is not having chest pain. His heart has improved since starting amiodarone yesterday, but still heart rates are in the 120s and 130s, especially when he is up moving around, but at the lowest rates, they are around 100. He does have a history of atrial fibrillation. OBJECTIVE: Vital Signs: Today, his weight is 141 kg, temperature 97, pulse 133, blood pressure 135/81, respiratory rate is 16 and O2 of 95 on room air. General: He is in no acute distress. Heart: Regularly irregular. Lungs: Sounds are clear to auscultation without crackles or wheezes, but he is having expiratory wheezing. Abdomen: Has positive bowel sounds. Soft, nondistended, nontender. Extremities: Warm and dry. No edema. Mental Status: Alert and orientated x3. LABORATORY DATA: Lab work not done today. Chest x-ray did show improvement in aeration. No infiltrates. He did have infiltrates on admission for his pneumonia on the right mid lung and lower lung. ASSESSMENT AND PLAN: 1. Sepsis secondary to community-acquired pneumonia, day #4 of IV Vanco and Rocephin. I did consider switching over to oral antibiotics, but if he has 1 more day tomorrow, he will complete his 5-day course and will not need outpatient antibiotics. 2. Influenza A. He did not receive Tamiflu as he had been sick 2 weeks. 3. Community-acquired pneumonia after influenza. Sputum cultures did not reveal a source. 4. He is clinically improving with current antibiotics. 5. Asthma exacerbation due to underlying pneumonia. We will start him on prednisone 20 mg daily for 5 days. He got Solu-Medrol yesterday. He does have nebulizers and inhalers available. 6. Atrial fibrillation with rapid ventricular response. Rates are improving on the amiodarone 400 twice daily and Toprol 100 twice daily. We will give him IV digoxin 250 and re-dose later to do a full load if needed. I would like to just send him home on 200 of amiodarone and increase metoprolol and follow up in the clinic. 7. Fall with head trauma. His CT was negative. He has had no further symptoms. 8. Gastroesophageal reflux disease. 9. Essential hypertension. His hydrochlorothiazide has been on hold. He is not having any fluid retention. We will restart it on discharge or when needed for hypertension. 10.Restless legs syndrome. PLAN: Patient will continue acute cares. We are giving him IV digoxin today. We are continuing to monitor his heart rates closely with telemetry. He will continue Toprol and amiodarone. He will continue IV Vanco and Rocephin, last doses will be tomorrow. For DVT prophylaxis, he is on Eliquis. He is a code level 3. MKA: 05/27/2021 15:09:57 MODL: 05/28/2021 04:25:00 /[id number]
[2021-05-28 07:48] LABS: CHLORIDE,CL 100 mmol/L (98-107); SODIUM,NA 132 mmol/L (136-145)
[2021-05-28] MEDS ORDERED: cefTRIAXone 1 GM Vial IVPUSH SCH (08:00)
[2021-05-28] MEDS: Metoprolol Succinate 50 MG Tab.ER PO SCH (08:01)
[2021-05-28] MEDS: Gabapentin 300 MG Cap PO SCH (08:01)
[2021-05-28] MEDS: Apixaban 2.5 MG Tab PO SCH (08:01)
[2021-05-28] MEDS: Amiodarone 200 MG Tab PO SCH (08:02)
[2021-05-28] MEDS: Lisinopril 20 MG Tab PO SCH (08:02)
[2021-05-28] MEDS: predniSONE 20 MG Tab PO SCH (08:02)
[2021-05-28] MEDS: Formoterol/Mometasone 200-5 MCG 13 GM Inhaler INH SCH (08:03)
[2021-05-28 13:48] VITALS: BP 145/102; PULSE 95
--- NOTE | 2021-05-28 22:31 | DISCH ---
PRIMARY DISCHARGE DIAGNOSES: 1. Sepsis secondary to community-acquired pneumonia after influenza A. 2. Influenza A. Did not receive Tamiflu. He had symptoms over 2 weeks. 3. Community-acquired pneumonia. His blood and sputum cultures failed to reveal a specific organism. He completed 5 days of vancomycin and Rocephin. 4. Atrial fibrillation with rapid ventricular response, improved after starting oral amiodarone. 5. Asthma with exacerbation due to underlying pneumonia, improved with IV steroids and oral prednisone. 6. Fall with head trauma. Head CT negative. He is improving. 7. Gastroesophageal reflux disease. 8. Essential hypertension. Blood pressure is under good control. Hydrochlorothiazide was on hold while on his stay here. He had no edema. 9. Mild hyponatremia, which is new. Sodium at 132 at discharge. He is asymptomatic. 10.Restless legs syndrome. He takes Neurontin. REASON FOR ADMISSION: On the date of admission, this 85-year-old male, who had been getting weak at home, fell and hit his head. He was having some cough. He was found to have influenza A and pneumonia with right-sided infiltrates and he was started on IV antibiotics. He did not require any oxygen throughout his stay. He did get a repeat chest x-ray on 05/27, which showed significant resolution of his infiltrates. He did get monitored with telemetry and had heart rates up into the 160s and 70s. His metoprolol was increased to 50 twice daily, then 100 twice daily, and on 05/26, Cardiology was consulted and recommended starting amiodarone load and discharging on 200 mg daily. This did improve his heart rates down to the 120s and 130s, still they were fast, so yesterday morning, did receive 1 dose of IV digoxin and decision was made to discharge him home on just the amiodarone 200 mg daily and the increased metoprolol 100 mg twice daily until his followup. The patient had no chest pain or shortness of breath due to this tachycardia. He has a history of AFib and had been ablated about 10 years ago and has not had any recent echos done, so one will be ordered. His last EF was by a nuclear stress test and it was normal at 61%. The patient continued on his Eliquis during his stay. He did use only 1 p.r.n. albuterol neb during his stay. He was restarted on his home inhalers and does have them available at home, a steroid and long-acting bronchodilator combination. DISCHARGING PLANS AND INSTRUCTIONS: He will follow up in the clinic with Dr. Cullen in 1 week's time. He will have 3 more days of prednisone on discharge. He will need no further antibiotics. He will be on increased metoprolol 100 twice daily; I will send this script to the [place]. He has a supply at home to utilize in the meantime. He will be on amiodarone 200 mg daily, which was sent to [facility] for him. He will have lab work for a BMP at his followup visit with me. He did not need home health. OBJECTIVE: Vital Signs: Discharging vitals include a temperature of afebrile, pulse 79, blood pressure 129/63, respiratory rate 18, and O2 of 95 on room air. General: He is in no acute distress. Heart: Regularly irregular without murmur. Lungs: Sounds are clear to auscultation bilaterally today without wheezes or crackles. Abdomen: Nondistended, nontender. Extremities: Warm and dry. No edema. Mental Status: Alert and orientated x3. Greater than 30 minutes spent on this discharge process. MKA: 05/28/2021 10:22:10 MODL: 05/28/2021 22:25:13 /[id number]
== END 2021-05-28 14:00 | disposition home or self-care (01) | DRG 871 ==
LOC: VM.ED 11:51 → VM.MS 13:21
PROVIDERS: ADMIT Family Medicine; ATTEND Family Medicine
DX: A41.89 Other specified sepsis (principal); E87.70 Fluid overload, unspecified; J18.9 Pneumonia, unspecified organism; S09.8XXA Other specified injuries of head, initial encounter; W22.09XA Striking against other stationary object, initial encounter; H40.9 Unspecified glaucoma; J10.00 Influenza due to other identified influenza virus with unspecified type of pneumonia; J44.0 Chronic obstructive pulmonary disease with (acute) lower respiratory infection; E87.1 Hypo-osmolality and hyponatremia; J45.41 Moderate persistent asthma with (acute) exacerbation; I48.91 Unspecified atrial fibrillation; K21.9 Gastro-esophageal reflux disease without esophagitis; Z20.822 Contact with and (suspected) exposure to COVID-19; Z79.51 Long term (current) use of inhaled steroids; I10 Essential (primary) hypertension; G25.81 Restless legs syndrome; D50.9 Iron deficiency anemia, unspecified; N40.0 Benign prostatic hyperplasia without lower urinary tract symptoms; M51.36 Other intervertebral disc degeneration, lumbar region; W01.0XXA Fall on same level from slipping, tripping and stumbling without subsequent striking against object, initial encounter; M19.90 Unspecified osteoarthritis, unspecified site; G47.61 Periodic limb movement disorder; M54.9 Dorsalgia, unspecified; G89.29 Other chronic pain; M25.811 Other specified joint disorders, right shoulder; Z98.49 Cataract extraction status, unspecified eye; Z90.49 Acquired absence of other specified parts of digestive tract; Z79.01 Long term (current) use of anticoagulants; Z88.0 Allergy status to penicillin; Z85.038 Personal history of other malignant neoplasm of large intestine; Z79.899 Other long term (current) drug therapy
CPT/HCPCS: 0240U; 36415; 70450; 71045; 71046; 72020; 80048; 80053; 80202; 83605; 83880; 84443; 85025; 86140; 87040; 87205; 93005; 96374; 96375; 97161; 97165; 99285; A9270-GY; J0696; J1160; J2920; J3370; J3490; J7512; J7611

== ENCOUNTER 2023-10-29 11:48 | Day surgery (SDC) | payer MEDICARE, OTHER ==
[2023-10-29] MEDS: Lactated Ringers 1,000 ML IV SCH (12:08)
[2023-10-29] MEDS ORDERED: Midazolam 1 MG/ML 2 ML SDV ONE (12:59)
[2023-10-29] MEDS ORDERED: Propofol 200 MG/20 ML SDV ONE (12:59)
[2023-10-29] MEDS ORDERED: fentaNYL 100 MCG/2 ML SDV ONE (13:00)
[2023-10-29 14:20] VITALS: BP 132/79; PULSE 87
== END 2023-10-29 14:59 | disposition home or self-care (01) ==
LOC: VM.SDS 11:48
PROVIDERS: ATTEND Family Medicine
DX: Z12.11 Encounter for screening for malignant neoplasm of colon (principal); D12.3 Benign neoplasm of transverse colon; Q43.8 Other specified congenital malformations of intestine; K64.9 Unspecified hemorrhoids; J45.40 Moderate persistent asthma, uncomplicated; J44.89 Other specified chronic obstructive pulmonary disease; I48.91 Unspecified atrial fibrillation; I10 Essential (primary) hypertension; K21.9 Gastro-esophageal reflux disease without esophagitis; N40.1 Benign prostatic hyperplasia with lower urinary tract symptoms; R35.1 Nocturia; G89.29 Other chronic pain; M54.50 Low back pain, unspecified; L21.9 Seborrheic dermatitis, unspecified; B35.6 Tinea cruris; Z79.899 Other long term (current) drug therapy; Z88.0 Allergy status to penicillin; Z91.09 Other allergy status, other than to drugs and biological substances; Z85.038 Personal history of other malignant neoplasm of large intestine; Z79.01 Long term (current) use of anticoagulants; Z90.49 Acquired absence of other specified parts of digestive tract
CPT/HCPCS: 00811; 88305; 99100; J2250; J2704; J3010; J7120

== ENCOUNTER 2024-12-18 18:23 | Inpatient (IN) | payer MEDICARE, OTHER ==
[2024-12-18] MEDS ORDERED: Sodium Chloride 0.9% 10 ML Syringe FLUSH PRN (18:52)
[2024-12-18 19:01] LABS: PLATELET COUNT,PLT 188 x10^3/uL (130-400); RED BLOOD CELL COUNT 4.94 x10^6/uL (4.5-6.0)
[2024-12-18] MEDS: Diltiazem 50 MG/10 ML SDV IVPUSH ONE (19:03)
[2024-12-18 19:07] LABS: WHITE BLOOD CELL COUNT,WBC 20.6 x10^3/uL (4.0-10.0)
[2024-12-18 19:13] LABS: LYMPHOCYTES ABSOLUTE MAN 0.8 x10^3/uL (1.0-4.8); LYMPHOCYTES PERCENT MAN 4 % (25-50); MONOCYTES ABSOLUTE MAN 1.6 x10^3/uL (0.0-0.8); MONOCYTES PERCENT MAN 8 % (2-11); NEUTROPHILS ABSOLUTE MAN 18.1 x10^3/uL (1.8-7.7); SEG NEUTROPHILS PERCENT MAN 88 % (50-80)
[2024-12-18 19:27] LABS: A/G RATIO 1.00; ALANINE AMINOTRANSFERASE,ALT 11 U/L (16-63); ASPARTATE AMNIOTRANSFERASE,AST 19 U/L (15-37); BILIRUBIN TOTAL 1.9 mg/dL (0.2-1.0); BLOOD UREA NITROGEN,BUN 12 mg/dL (7-18); CARBON DIOXIDE,CO2 25 mmol/L (21-32); CHLORIDE,CL 97 mmol/L (98-107); CREATINE KINASE,CK 33 U/L (39-308); CREATININE 1.0 mg/dL (0.70-1.30); GLUCOSE RANDOM 155 mg/dL (70-99); POTASSIUM,K 4.1 mmol/L (3.5-5.1); PROTEIN TOTAL,TP 7.8 g/dL (6.4-8.2); SODIUM,NA 134 mmol/L (136-145)
[2024-12-18 19:28] LABS: ESTIMATED GFR 73 mL/min (>=60)
[2024-12-18] MEDS: Metoprolol Tartrate 5 MG/5 ML SDV IVPUSH ONE (20:06)
[2024-12-18 20:32] LABS: APPEARANCE,URINE CLOUDY (CLEAR); GLUCOSE,URINE NEGATIVE (NEGATIVE); OCCULT BLOOD,URINE LARGE (NEGATIVE)
[2024-12-18 20:38] LABS: SQUAMOUS EPITHELIAL CELLS,UR RARE /HPF (NOT SEEN)
[2024-12-18] MEDS ORDERED: Albuterol 0.083% 2.5 MG/3 ML Neb Soln NEB PRN (22:49)
[2024-12-18] MEDS ORDERED: Naloxone 0.4 MG/ML SDV IVPUSH PRN (22:56)
[2024-12-19] MEDS: DOFETILIDE 500 MCG PO SCH (01:41)
[2024-12-19] MEDS: Metoprolol Tartrate 5 MG/5 ML SDV IVPUSH PRN (04:50)
[2024-12-19] MEDS ORDERED: Flumazenil 0.1 MG/ML 5 ML MDV IVPUSH PRN (05:23)
[2024-12-19] MEDS: AMIODARONE IV ONE (05:35)
[2024-12-19 05:39] LABS: BASOPHILS ABSOLUTE AUTO 0.0 x10^3/uL (0.0-0.2); BASOPHILS PERCENT AUTO 0.1 % (0.2-1.2); EOSINOPHILS ABSOLUTE AUTO 0.0 x10^3/uL (0.0-0.5); EOSINOPHILS PERCENT AUTO 0.0 % (0.0-4.0); IMMATURE GRAN ABSOLUTE AUTO 0.08 x10^3/uL (0.00-0.07); IMMATURE GRAN PERCENT AUTO 0.50 % (0.00-0.43); LYMPHOCYTES ABSOLUTE AUTO 0.4 x10^3/uL (1.0-4.8); MONOCYTES ABSOLUTE AUTO 0.9 x10^3/uL (0.0-0.8); MONOCYTES PERCENT AUTO 5.4 % (2.0-11.0); NEUTROPHILS ABSOLUTE AUTO 15.0 x10^3/uL (1.8-7.7); NEUTROPHILS PERCENT AUTO 91.8 % (50.0-80.0); PLATELET COUNT,PLT 148 x10^3/uL (130-400); RED BLOOD CELL COUNT 4.33 x10^6/uL (4.5-6.0); WHITE BLOOD CELL COUNT,WBC 16.4 x10^3/uL (4.0-10.0)
[2024-12-19] MEDS: Amiodarone 360 MG/200 ML 360 MG/200 ML BAG IV ONE ×2 (05:45→10:20)
[2024-12-19 05:51] LABS: LYMPHOCYTES PERCENT AUTO 2.2 % (25.0-50.0)
[2024-12-19 06:03] LABS: A/G RATIO 0.86; ALANINE AMINOTRANSFERASE,ALT 9.0 U/L (16-63); ASPARTATE AMNIOTRANSFERASE,AST 15.0 U/L (15-37); BILIRUBIN TOTAL 1.8 mg/dL (0.2-1.0); BLOOD UREA NITROGEN,BUN 19.0 mg/dL (7-18); CARBON DIOXIDE,CO2 21.0 mmol/L (21-32); CHLORIDE,CL 100.0 mmol/L (98-107); CREATININE 0.9 mg/dL (0.70-1.30); EST CRCL DRUG DOSING (CG) 49.45 mL/min; GLUCOSE RANDOM 197.0 mg/dL (70-99); POTASSIUM,K 3.6 mmol/L (3.5-5.1); PROTEIN TOTAL,TP 6.5 g/dL (6.4-8.2); SODIUM,NA 134.0 mmol/L (136-145)
[2024-12-19 06:05] LABS: ESTIMATED GFR 83.0 mL/min (>=60)
[2024-12-19] MEDS: Magnesium Sulfate 2 GM/50 mL 2 GM in Premix Bag 1 BAG IV ONE (06:30)
[2024-12-19] MEDS: LORazepam 2 MG/ML SDV IVPUSH ONE (08:00)
[2024-12-19] MEDS: Pantoprazole 20 MG Tab, Delayed Release PO SCH (08:18)
[2024-12-19] MEDS: Formoterol/Mometasone 200-5 MCG 13 GM Inhaler INH SCH (08:20)
[2024-12-19] MEDS ORDERED: [UNRECOGNIZED DRUG - OTHER] INH SCH (09:00)
[2024-12-19] MEDS ORDERED: DIS INH SCH (09:00)
[2024-12-19] MEDS ORDERED: OLOPATADINE 0.1% EYEBOTH SCH (09:00)
[2024-12-19] MEDS ORDERED: FLUTICASONE INH SCH (09:00)
[2024-12-19] MEDS ORDERED: OPTHALMIC EYEBOTH SCH (09:00)
[2024-12-19] MEDS ORDERED: SALMETEROL INH SCH (09:00)
[2024-12-19] MEDS: Amiodarone 360 MG/200 ML 360 MG/200 ML BAG IV SCH (11:45)
[2024-12-19] MEDS: Sennosides/Docusate Sodium 50-8.6 MG Tab PO PRN (20:39)
[2024-12-20 06:49] LABS: BASOPHILS ABSOLUTE AUTO 0.0 x10^3/uL (0.0-0.2); BASOPHILS PERCENT AUTO 0.1 % (0.2-1.2); EOSINOPHILS ABSOLUTE AUTO 0.0 x10^3/uL (0.0-0.5); EOSINOPHILS PERCENT AUTO 0.1 % (0.0-4.0); IMMATURE GRAN ABSOLUTE AUTO 0.08 x10^3/uL (0.00-0.07); IMMATURE GRAN PERCENT AUTO 0.50 % (0.00-0.43); LYMPHOCYTES ABSOLUTE AUTO 0.7 x10^3/uL (1.0-4.8); LYMPHOCYTES PERCENT AUTO 4.9 % (25.0-50.0); MONOCYTES ABSOLUTE AUTO 1.0 x10^3/uL (0.0-0.8); MONOCYTES PERCENT AUTO 7.0 % (2.0-11.0); NEUTROPHILS ABSOLUTE AUTO 13.1 x10^3/uL (1.8-7.7); NEUTROPHILS PERCENT AUTO 87.4 % (50.0-80.0); PLATELET COUNT,PLT 140 x10^3/uL (130-400); RED BLOOD CELL COUNT 4.37 x10^6/uL (4.5-6.0); WHITE BLOOD CELL COUNT,WBC 15.0 x10^3/uL (4.0-10.0)
[2024-12-20 07:24] LABS: A/G RATIO 0.68; ALANINE AMINOTRANSFERASE,ALT 11.0 U/L (16-63); ASPARTATE AMNIOTRANSFERASE,AST 19.0 U/L (15-37); BILIRUBIN TOTAL 0.8 mg/dL (0.2-1.0); BLOOD UREA NITROGEN,BUN 20.0 mg/dL (7-18); CARBON DIOXIDE,CO2 24.0 mmol/L (21-32); CHLORIDE,CL 101.0 mmol/L (98-107); CREATININE 0.9 mg/dL (0.70-1.30); EST CRCL DRUG DOSING (CG) 52.18 mL/min; ESTIMATED GFR 83.0 mL/min (>=60); GLUCOSE RANDOM 128.0 mg/dL (70-99); POTASSIUM,K 3.5 mmol/L (3.5-5.1); PROTEIN TOTAL,TP 6.2 g/dL (6.4-8.2); SODIUM,NA 135.0 mmol/L (136-145)
[2024-12-20] MEDS: Amiodarone 360 MG/200 ML 360 MG/200 ML BAG IV SCH (13:02)
[2024-12-20 14:48] VITALS: BP 132/84
[2024-12-20 14:50] VITALS: PULSE 106
== END 2024-12-20 14:36 | disposition short-term general hospital (02) | DRG 308 ==
LOC: VM.ED 18:23 → VM.MS 20:07
PROVIDERS: ADMIT Family Medicine; ATTEND Nurse Practitioner Family
DX: I48.91 Unspecified atrial fibrillation (principal); J18.9 Pneumonia, unspecified organism; J44.0 Chronic obstructive pulmonary disease with (acute) lower respiratory infection; J44.89 Other specified chronic obstructive pulmonary disease; N30.00 Acute cystitis without hematuria; Z79.51 Long term (current) use of inhaled steroids; Z79.01 Long term (current) use of anticoagulants; H40.9 Unspecified glaucoma; I10 Essential (primary) hypertension; D50.9 Iron deficiency anemia, unspecified; K21.9 Gastro-esophageal reflux disease without esophagitis; N40.0 Benign prostatic hyperplasia without lower urinary tract symptoms; M19.90 Unspecified osteoarthritis, unspecified site; M51.360 Other intervertebral disc degeneration, lumbar region with discogenic back pain only; M54.9 Dorsalgia, unspecified; G89.29 Other chronic pain; Z85.038 Personal history of other malignant neoplasm of large intestine; Z98.49 Cataract extraction status, unspecified eye; Z90.49 Acquired absence of other specified parts of digestive tract; Z79.899 Other long term (current) drug therapy; Z88.0 Allergy status to penicillin; Z98.890 Other specified postprocedural states
CPT/HCPCS: 51702; 71045; 80053; 82550; 83605; 84484; 85025; 87040 ×2; 93005; 93010; 96365; 96374; 96375; 99284; 99285; A9270; J0456; J0696; J3490 ×3; J7050; 36415; 81001; 83735; 87086; 87088; 87186; 94640; 99223-GT; J0283; J2270; J3475; J7030